=== PATIENT | male | born 1965 | race Caucasian/White ===

== ENCOUNTER 2018-06-24 19:22 | Emergency (ER) | payer MEDICARE, MEDICAID ==
[~2018-06-24] VITALS: Ht 175.3 cm; Wt 100.0 kg
[~2018-06-24 19:22] MED LIST: IBUP-1574 PO; NO HOME MEDS; ZOF4T PO
[2018-06-24] MEDS ORDERED: normal saline 1000ML IV soln IVB ONE (20:55)
--- NOTE | 2018-06-24 20:56 | NUR ---
FAMILY BROUGHT IN PT AFTER HE TOOK SOME UNKNOWN PILLS SEVERAL DAYS AGO. NOW ACTING "SPACEY", ATAXIC/WEAK WITH AMBULATION. FOLLOWS COMMAND, ORIENTED X 2, LAUGHING AND HAS DIFFICULTY STAYING ATTEMTIVE TO SITUATION.
[2018-06-24] MEDS ORDERED: LORazepam 2 mg/ml vial ONE (21:19)
[2018-06-24] MEDS ORDERED: LORazepam 2 mg/ml vial IV ONE ×3 (21:20→21:50)
--- NOTE | 2018-06-24 21:23 | NUR ---
PT MEDICATED WITH ATIVAN 1MG IV FOR AGGITATION.
[2018-06-24] MEDS ORDERED: diphenhydrAMINE 50 mg/ml inj ONE (21:29)
[2018-06-24] MEDS ORDERED: haloperidol lactate 5mg/ml inj IM ONE (21:30)
[2018-06-24] MEDS ORDERED: diphenhydrAMINE 50 mg/ml inj IV ONE (21:30)
[2018-06-24] MEDS ORDERED: haloperidol lactate 5mg/ml inj ONE (21:32)
[2018-06-24 21:34] LABS: BASOPHILS # (AUTO) 0.1 X10'3 (0-0.2); BASOPHILS % (AUTO) 0.9 % (0-1); EOSINOPHILS # (AUTO) 0.2 X10'3 (0-0.9); EOSINOPHILS % (AUTO) 2.6 % (0-6); HEMATOCRIT 44.2 % (42.0-52.0); LYMPHOCYTES % (AUTO) 26.7 % (21-51); MEAN CORPUSCULAR HEMOGLOBIN 30.7 PG (27.0-31.0); MEAN CORPUSCULAR VOLUME 90.3 FL (78-98); MEAN PLATELET VOLUME 9.1 FL (7.4-10.4); MONOCYTES # (AUTO) 0.7 X10'3 (0-0.9); MONOCYTES % (AUTO) 8.9 % (2-12); NEUTROPHILS # (AUTO) 4.5 X10'3 (1.8-7.7); NEUTROPHILS % (AUTO) 60.9 % (42-75); PLATELET COUNT 213 X10'3 (140-440); WHITE BLOOD COUNT 7.4 X10'3 (4.5-11.0)
[2018-06-24 21:37] LABS: ALANINE AMINOTRANSFERASE 30 U/L (12-78); ALBUMIN 3.9 G/DL (3.4-5.0); ALBUMIN/GLOBULIN RATIO 1.2 (1.1-1.5); ALKALINE PHOSPHATASE 65 IU/L (46-116); ANION GAP 10 (8-16); ASPARTATE AMINO TRANSFERASE 28 U/L (10-37); BILIRUBIN,TOTAL 0.5 MG/DL (0.1-1.0); BLOOD UREA NITROGEN 11 MG/DL (7-18); BUN/CREATININE RATIO 12.5 (5.4-32.0); CALCIUM 9.4 MG/DL (8.5-10.1); CHLORIDE 103 MMOL/L (99-107); CREATININE 0.88 MG/DL (0.60-1.10); ETHANOL < 0.010 GM/DL (0.0-0.010); GLUCOSE 121 MG/DL (70-104); POTASSIUM 4.1 MMOL/L (3.5-5.1); SODIUM 139 MMOL/L (135-145); TOTAL PROTEIN 7.2 G/DL (6.4-8.2); URINE AMPHETAMINE SCREEN POSITIVE (Neg); URINE BARBITUATE SCREEN NEGATIVE (Neg); URINE BENZODIAZEPINES SCREEN NEGATIVE (Neg); URINE CANNABINOID SCREEN NEGATIVE (Neg); URINE COCAINE SCREEN NEGATIVE (Neg); URINE METHADONE SCREEN NEGATIVE (Neg); URINE OPIATE SCREEN NEGATIVE (Neg); URINE PHENCYCLIDINE SCREEN NEGATIVE (Neg); eGFR 90 ML/MIN
--- NOTE | 2018-06-24 21:37 | NUR ---
PT'S AGGITATION WORSE, AT BEDSIDE, BENADRYL IV AND HALDOL IM GIVEN PER VERBAL ORDERS FROM DR GUZMAN.
[2018-06-24 21:39] LABS: INR 1.1 INR; PARTIAL THROMBOPLASTIN TIME 32 SECONDS (22-32); PROTHROMBIN TIME 10.8 SECONDS (9.0-12.0)
[2018-06-24 21:50] LABS: CLARITY,URINE CLEAR (Clear); COLOR,URINE YELLOW (Yellow); GLUCOSE, URINE NEGATIVE (Neg); KETONES,URINE 15 mg/dl (Neg); LEUKOCYTE ESTERASE ,URINE NEGATIVE (Neg); NITRITES, URINE NEGATIVE (Neg); OCCULT BLOOD,URINE NEGATIVE (Neg); PH,URINE 5.5 (4.8-8.0); PROTEIN,URINE NEGATIVE (Neg); UROBILINOGEN,URINE 0.2 E.U/dL (0.2-1.0)
--- NOTE | 2018-06-24 21:50 | NUR ---
PT HALLUCINATING, STILL VERY AGGITATED, ADDITIONAL ATIVAN ORDERED AND GIVEN.
[2018-06-24 21:52] LABS: UA COLLECTION TYPE CLN CATCH MIDSTREAM
--- NOTE | 2018-06-24 21:55 | NUR ---
PT HALLUCINATING, SPEAKING TO PEOPLE NOT THERE, YELLING "I DONT WANT TO ". STAFF AT BEDSIDE TRYING TO RE DIRECT PT WHILE MEDS TAKE AFFECT.
--- NOTE | 2018-06-24 23:16 | NUR ---
TELE PSYCH CONSULT NOT SET UP SINCE PT WAS MEDICATED FOR AGGITATION. WILL BEGIN CONSULT WHEN APPROPRIATE.
--- NOTE | 2018-06-25 02:27 | NUR ---
PT SLEEPING, VSS
--- NOTE | 2018-06-25 09:25 | NUR ---
report to david Holland on er overflow.
--- NOTE | 2018-06-25 09:45 | NUR ---
Patient escorted to Bed 23 by Lucy Suazo. Made comfortable in bed. Fell asleep immediately after laying down in bed.
--- NOTE | 2018-06-25 11:45 | NUR ---
Remains asleep. Breathing even and unlabored.
--- NOTE | 2018-06-25 13:05 | NUR ---
Awakened for lunch. Ate 100% of his meal. Returned to sleep.
--- NOTE | 2018-06-25 17:25 | NUR ---
Slept for remainder of the afternoon. Color pink. Breathing WNL. Saline lock removed from patient's right forearm without patient awakening.
--- NOTE | 2018-06-25 19:06 | NUR ---
Pt transfered to ER14.
--- NOTE | 2018-06-26 06:30 | NUR ---
Pt transfered to room 21.
--- NOTE | 2018-06-26 08:49 | NUR ---
Denies SI or HI. States can come and pick him up. Dr White aware.
[2018-06-26 09:47] VITALS: BP 128/77
== END 2018-06-26 09:49 | disposition home or self-care (01) ==
LOC: ER 19:23
DX: F15.10 Other stimulant abuse, uncomplicated (principal); R45.851 Suicidal ideations; R11.10 Vomiting, unspecified; Z79.899 Other long term (current) drug therapy; Z56.0 Unemployment, unspecified
CPT/HCPCS: 36415; 70450; 71045; 80053; 80305; 80320; 81003; 82140; 82948; 85025; 85610; 85730; 93005; 96372; 96374; 96375; 96376; 99284; J1200; J1630; J2060; J7030

== ENCOUNTER 2018-10-04 13:03 | Emergency (ER) | payer MEDICARE, MEDICAID ==
[~2018-10-04] VITALS: Ht 175.3 cm; Wt 79.0 kg
[2018-10-04 13:50] LABS: BASOPHILS # (AUTO) 0.1 X10'3 (0-0.2); EOSINOPHILS # (AUTO) 0.2 X10'3 (0-0.9); EOSINOPHILS % (AUTO) 2.4 % (0-6); HEMATOCRIT 44.1 % (42.0-52.0); HEMOGLOBIN 15.3 g/dl (14.0-17.9); LYMPHOCYTES # (AUTO) 1.5 X10'3 (1.1-4.8); MEAN CORPUSCULAR HEMOGLOBIN 31.6 PG (27.0-31.0); MEAN CORPUSCULAR HGB CONC 34.7 g/dL (33.0-36.5); MEAN CORPUSCULAR VOLUME 91.1 FL (78-98); MONOCYTES # (AUTO) 0.4 X10'3 (0-0.9); MONOCYTES % (AUTO) 5.5 % (2-12); NEUTROPHILS # (AUTO) 5.5 X10'3 (1.8-7.7); NEUTROPHILS % (AUTO) 72.1 % (42-75); PLATELET COUNT 183 X10'3 (140-440); RED BLOOD COUNT 4.84 X10'6 (4.70-6.10); RED CELL DISTRIBUTION WIDTH 12.9 % (11.5-14.5); WHITE BLOOD COUNT 7.6 X10'3 (4.5-11.0)
[2018-10-04 13:57] LABS: CLARITY,URINE SLIGHTLY CLOUDY (Clear); COLOR,URINE YELLOW (Yellow); GLUCOSE, URINE >=1000 mg/dl (Neg); KETONES,URINE 40 mg/dl (Neg); LEUKOCYTE ESTERASE ,URINE NEGATIVE (Neg); NITRITES, URINE NEGATIVE (Neg); OCCULT BLOOD,URINE NEGATIVE (Neg); PH,URINE 5.5 (4.8-8.0); PROTEIN,URINE NEGATIVE (Neg); UROBILINOGEN,URINE 0.2 E.U/dL (0.2-1.0)
[2018-10-04 14:06] LABS: ALBUMIN 3.3 G/DL (3.4-5.0); ALBUMIN/GLOBULIN RATIO 0.9 (1.1-1.5); ALKALINE PHOSPHATASE 87 IU/L (46-116); BILIRUBIN,TOTAL 0.6 MG/DL (0.1-1.0); BLOOD UREA NITROGEN 20 MG/DL (7-18); BUN/CREATININE RATIO 19.6 (5.4-32.0); CALCIUM 8.3 MG/DL (8.5-10.1); CHLORIDE 90 MMOL/L (99-107); CREATININE 1.02 MG/DL (0.60-1.10); LIPASE 362 U/L (73-393); TOTAL CARBON DIOXIDE 25.4 MMOL/L (24-32); TOTAL PROTEIN 6.9 G/DL (6.4-8.2); eGFR 76 ML/MIN
[2018-10-04 14:08] LABS: UA COLLECTION TYPE CLN CATCH MIDSTREAM
[2018-10-04 14:11] LABS: ALANINE AMINOTRANSFERASE 31 U/L (12-78); ASPARTATE AMINO TRANSFERASE 13 U/L (10-37); POTASSIUM 4.7 MMOL/L (3.5-5.1)
[2018-10-04 14:19] LABS: BACTERIA,URINE FEW /HPF (Neg); RBC,URINE 0-2 /HPF (0-2); SQUAMOUS EPITHELIAL CELL,UR FEW /LPF (FEW); WBC,URINE 0-4 /HPF (0-4)
--- NOTE | 2018-10-04 14:22 | NUR ---
P ASSESSED AT BEDSIDE.CO APIGASTRIC PAIN X2 WEEK.GET WORSE WITH EATING MEALS.
[2018-10-04 14:23] LABS: ANION GAP 8 (8-16); SODIUM 123 MMOL/L (135-145)
[2018-10-04 14:28] LABS: GLUCOSE 672 MG/DL (70-104)
--- NOTE | 2018-10-04 14:35 | NUR ---
NO NEW ORDERES FROM DR STEINER OR RAYA AT THIS TIME , IS AWARE.
[2018-10-04] MEDS ORDERED: normal saline 1000ML IV soln IVB ONE ×2 (14:45→17:20)
[2018-10-04 15:00] LABS: HEMOGLOBIN A1C 11.8 % (4.5-6.2)
[2018-10-04] MEDS ORDERED: insulin regular, human 10 units/0.1 ml syringe SQ ONE ×2 (15:05→17:20)
--- NOTE | 2018-10-04 15:15 | NUR ---
ADMINSTERED INSULIN TO PT IV FLUID INFUSING PER MD ORDERS,PT DENIES ANY CONCERN, AT BEDSIDE.
--- NOTE | 2018-10-04 16:06 | NUR ---
CASE MANAGEMENT CALLED REGARDING INFORMATION FOR DIABETIC EDUCATION. WAS GIVEN THE PHONE NUMBER FOR THE DIABETIC CENTER AND FAXED THE PT'S FACE SHEET TO THEM ALONG WITH A FOLLOW-UP PHONE CALL, MESSAGE WAS LEFT. PT WAS INFORMED TO CALL [facility] AND MAKE AN APPT TO ESTABLISH WITH A PMD THERE AND THAT THE DIABETIC CLINIC WILL BE CALLING HIM TO MAKE AN APPT FOR F/U EDUCATION. PT GIVEN PHONE NUMBERS FOR THE DIABETIC CLINIC AND [facility]
[2018-10-04] MEDS ORDERED: INSU100I31 SQ (16:24)
--- NOTE | 2018-10-04 17:00 | NUR ---
as per pt jabari colorado said that he is going back home,wll cont to monitor.
--- NOTE | 2018-10-04 17:39 | NUR ---
RELIEVING RN FOR BREAK, PT IS RESTING QUIETLY, MEDICATED PER MD ORDER, 1 LITER NS INFUSING W/O
[2018-10-04 18:17] VITALS: BP 124/66
--- NOTE | 2018-10-04 18:50 | NUR ---
informed pa miroslava stallworth pt bld [address].as per pa pt might go home ,he is going to print discharge paperwork .
== END 2018-10-04 19:18 | disposition home or self-care (01) ==
LOC: ER 13:03
DX: E11.65 Type 2 diabetes mellitus with hyperglycemia (principal); R11.2 Nausea with vomiting, unspecified; R10.13 Epigastric pain; K59.00 Constipation, unspecified; F17.200 Nicotine dependence, unspecified, uncomplicated; F15.90 Other stimulant use, unspecified, uncomplicated; F10.99 Alcohol use, unspecified with unspecified alcohol-induced disorder; Z56.0 Unemployment, unspecified; Z79.4 Long term (current) use of insulin; Y90.9 Presence of alcohol in blood, level not specified
CPT/HCPCS: 36415; 80053; 81001; 82948; 83036; 83690; 85025; 96360; 96361; 96372; 99283; J1815; J7030

== ENCOUNTER 2019-01-24 17:23 | Emergency (ER) | payer MEDICARE, MEDICAID ==
[~2019-01-24] VITALS: Ht 175.3 cm; Wt 84.0 kg
[~2019-01-24 17:23] MED LIST changes: -IBUP-1574 PO; +INSU100I31 SQ; -ZOF4T PO
[2019-01-24 18:22] LABS: BASOPHILS # (AUTO) 0.1 X10'3 (0-0.2); BASOPHILS % (AUTO) 0.8 % (0-1); EOSINOPHILS # (AUTO) 0.2 X10'3 (0-0.9); EOSINOPHILS % (AUTO) 2.3 % (0-6); LYMPHOCYTES # (AUTO) 1.4 X10'3 (1.1-4.8); LYMPHOCYTES % (AUTO) 21.3 % (21-51); MEAN CORPUSCULAR HEMOGLOBIN 30.6 PG (27.0-31.0); MEAN CORPUSCULAR HGB CONC 34.1 g/dL (33.0-36.5); MEAN CORPUSCULAR VOLUME 89.7 FL (78-98); MEAN PLATELET VOLUME 9.5 FL (7.4-10.4); MONOCYTES # (AUTO) 0.5 X10'3 (0-0.9); MONOCYTES % (AUTO) 7.3 % (2-12); NEUTROPHILS # (AUTO) 4.6 X10'3 (1.8-7.7); NEUTROPHILS % (AUTO) 68.3 % (42-75); PLATELET COUNT 227 X10'3 (140-440); RED CELL DISTRIBUTION WIDTH 13.2 % (11.5-14.5); WHITE BLOOD COUNT 6.8 X10'3 (4.5-11.0)
[2019-01-24 18:24] LABS: CLARITY,URINE CLEAR (Clear); GLUCOSE, URINE NEGATIVE (Neg); KETONES,URINE NEGATIVE (Neg); LEUKOCYTE ESTERASE ,URINE NEGATIVE (Neg); NITRITES, URINE NEGATIVE (Neg); OCCULT BLOOD,URINE NEGATIVE (Neg); PH,URINE 6.5 (4.8-8.0); PROTEIN,URINE NEGATIVE (Neg)
[2019-01-24 18:25] LABS: COLOR,URINE DARK YELLOW (Yellow); UA COLLECTION TYPE VOIDED; URINE AMPHETAMINE SCREEN POSITIVE (Neg); URINE BARBITUATE SCREEN NEGATIVE (Neg); URINE BENZODIAZEPINES SCREEN NEGATIVE (Neg); URINE CANNABINOID SCREEN POSITIVE (Neg); URINE COCAINE SCREEN NEGATIVE (Neg); URINE METHADONE SCREEN NEGATIVE (Neg); URINE OPIATE SCREEN NEGATIVE (Neg); URINE PHENCYCLIDINE SCREEN NEGATIVE (Neg)
[2019-01-24 18:33] LABS: ALANINE AMINOTRANSFERASE 19 U/L (12-78); ALBUMIN 3.9 G/DL (3.4-5.0); ALKALINE PHOSPHATASE 64 IU/L (46-116); ANION GAP 8 (8-16); ASPARTATE AMINO TRANSFERASE 20 U/L (10-37); BILIRUBIN,TOTAL 0.5 MG/DL (0.1-1.0); BLOOD UREA NITROGEN 10 MG/DL (7-18); BUN/CREATININE RATIO 10.3 (5.4-32.0); CALCIUM 9.5 MG/DL (8.5-10.1); CHLORIDE 103 MMOL/L (99-107); CREATININE 0.97 MG/DL (0.60-1.10); GLUCOSE 142 MG/DL (70-104); POTASSIUM 3.7 MMOL/L (3.5-5.1); SODIUM 138 MMOL/L (135-145); TOTAL CARBON DIOXIDE 27.5 MMOL/L (24-32); TOTAL PROTEIN 7.7 G/DL (6.4-8.2); eGFR 80 ML/MIN
[2019-01-24 18:41] LABS: ETHANOL < 0.010 GM/DL (0.0-0.010)
[2019-01-24] MEDS ORDERED: normal saline 1000ML IV soln IVB ONE (18:55)
[2019-01-24] MEDS ORDERED: quetiapine 100mg tablet PO STA (19:23)
[2019-01-24] MEDS ORDERED: OLANZapine 2.5MG tablet PO STA (19:23)
[2019-01-24] MEDS ORDERED: diphenhydrAMINE 50 mg/ml inj IV ONE (19:25)
[2019-01-24] MEDS ORDERED: LORazepam 2 mg/ml vial IV ONE (20:35)
--- NOTE | 2019-01-24 21:36 | NUR ---
Assumed care from Conchita MENDIOLA, patient sleeping at this time.
--- NOTE | 2019-01-25 | NUR ---
WALKED BY ROOM AND OBSERVED PT OUT OF BED URINATING INTO SINK. PT HAD ALSO URINATED ALL OVER THE FLOOR. PT HAD A URINAL AT BEDSIDE. HE WAS PLACED BACK INTO BED AND EVS WAS NOTIFIED TO CLEAN THE FLOOR.
--- NOTE | 2019-01-25 05:10 | NUR ---
Patient ambulated 200ft with stand by assist. Used urinal appropriately, and answered all questions appropriately. MD avalos
[2019-01-25 05:34] VITALS: BP 115/62
== END 2019-01-25 05:37 | disposition home or self-care (01) ==
LOC: ER 17:24
DX: G92 Toxic encephalopathy (principal); F15.10 Other stimulant abuse, uncomplicated; R41.0 Disorientation, unspecified; Z56.0 Unemployment, unspecified; Z79.4 Long term (current) use of insulin
CPT/HCPCS: 36415; 71045; 80053; 80305; 80320; 81003; 82140; 82948; 84443; 85025; 93005; 96361; 96374; 96375; 99284; J1200; J2060; J7030

== ENCOUNTER 2019-02-26 10:26 | Emergency (ER) | payer MEDICARE, MEDICAID ==
[~2019-02-26] VITALS: Ht 175.3 cm; Wt 83.9 kg
[2019-02-26 11:06] LABS: BASOPHILS # (AUTO) 0.1 X10'3 (0-0.2); EOSINOPHILS # (AUTO) 0.2 X10'3 (0-0.9); EOSINOPHILS % (AUTO) 2.4 % (0-6); HEMATOCRIT 45.4 % (42.0-52.0); HEMOGLOBIN 15.4 g/dl (14.0-17.9); LYMPHOCYTES # (AUTO) 1.2 X10'3 (1.1-4.8); MEAN CORPUSCULAR HEMOGLOBIN 31.1 PG (27.0-31.0); MEAN CORPUSCULAR VOLUME 91.7 FL (78-98); MEAN PLATELET VOLUME 8.7 FL (7.4-10.4); MONOCYTES # (AUTO) 0.5 X10'3 (0-0.9); MONOCYTES % (AUTO) 7.5 % (2-12); NEUTROPHILS # (AUTO) 4.9 X10'3 (1.8-7.7); NEUTROPHILS % (AUTO) 71.1 % (42-75); PLATELET COUNT 251 X10'3 (140-440); RED BLOOD COUNT 4.95 X10'6 (4.70-6.10); RED CELL DISTRIBUTION WIDTH 13.2 % (11.5-14.5); WHITE BLOOD COUNT 6.8 X10'3 (4.5-11.0)
[2019-02-26 11:21] LABS: ALANINE AMINOTRANSFERASE 26 U/L (12-78); ALBUMIN 3.9 G/DL (3.4-5.0); ALBUMIN/GLOBULIN RATIO 1.1 (1.1-1.5); ALKALINE PHOSPHATASE 67 IU/L (46-116); ANION GAP 5 (8-16); ASPARTATE AMINO TRANSFERASE 17 U/L (10-37); BILIRUBIN,TOTAL 0.5 MG/DL (0.1-1.0); BLOOD UREA NITROGEN 12 MG/DL (7-18); BUN/CREATININE RATIO 13.2 (5.4-32.0); CALCIUM 8.7 MG/DL (8.5-10.1); CHLORIDE 105 MMOL/L (99-107); CREATININE 0.91 MG/DL (0.60-1.10); GLUCOSE 97 MG/DL (70-104); POTASSIUM 4.3 MMOL/L (3.5-5.1); SODIUM 140 MMOL/L (135-145); TOTAL CARBON DIOXIDE 29.6 MMOL/L (24-32); TOTAL PROTEIN 7.4 G/DL (6.4-8.2); eGFR 86 ML/MIN
[2019-02-26 12:42] VITALS: BP 112/63
== END 2019-02-26 12:44 | disposition home or self-care (01) ==
LOC: ER 10:29
DX: R53.1 Weakness (principal); R06.02 Shortness of breath; R07.9 Chest pain, unspecified; F15.90 Other stimulant use, unspecified, uncomplicated; E11.9 Type 2 diabetes mellitus without complications; F17.200 Nicotine dependence, unspecified, uncomplicated; Z79.4 Long term (current) use of insulin; Z79.899 Other long term (current) drug therapy; Z56.0 Unemployment, unspecified; Z13.89 Encounter for screening for other disorder
CPT/HCPCS: 36415; 71045; 80053; 82948; 84484; 85025; 93005; 99284

== ENCOUNTER 2020-03-26 09:40 | Emergency (ER) | payer MEDICARE, MEDICAID ==
[~2020-03-26] VITALS: Ht 175.3 cm; Wt 87.0 kg
[2020-03-26 09:44] VITALS: BP 113/77
[2020-03-26] MEDS ORDERED: NAPR-56 PO (10:05)
[2020-03-26] MEDS ORDERED: PENI250T2 PO (10:05)
== END 2020-03-26 10:36 | disposition home or self-care (01) ==
LOC: ER 09:41
DX: K02.9 Dental caries, unspecified (principal); E11.9 Type 2 diabetes mellitus without complications; F15.90 Other stimulant use, unspecified, uncomplicated; Z72.89 Other problems related to lifestyle; Z56.0 Unemployment, unspecified; Z79.899 Other long term (current) drug therapy; Z79.4 Long term (current) use of insulin
CPT/HCPCS: 99283

== ENCOUNTER 2021-05-28 21:01 | Emergency (ER) | payer MEDICARE, MEDICAID ==
[~2021-05-28] VITALS: Ht 175.3 cm; Wt 77.3 kg
[2021-05-28 21:53] LABS: BASOPHILS # (AUTO) 0.1 X10'3 (0-0.2); BASOPHILS % (AUTO) 0.8 % (0-1); EOSINOPHILS # (AUTO) 0.1 X10'3 (0-0.9); EOSINOPHILS % (AUTO) 1.8 % (0-6); HEMATOCRIT 44.6 % (42.0-52.0); HEMOGLOBIN 15.1 g/dl (14.0-17.9); LYMPHOCYTES # (AUTO) 1.9 X10'3 (1.1-4.8); LYMPHOCYTES % (AUTO) 24.4 % (21-51); MEAN CORPUSCULAR HEMOGLOBIN 30.5 PG (27.0-31.0); MEAN CORPUSCULAR HGB CONC 33.9 g/dL (33.0-36.5); MEAN PLATELET VOLUME 9.9 FL (7.4-10.4); MONOCYTES # (AUTO) 0.6 X10'3 (0-0.9); MONOCYTES % (AUTO) 7.5 % (2-12); NEUTROPHILS % (AUTO) 65.5 % (42-75); PLATELET COUNT 208 X10'3 (140-440); RED BLOOD COUNT 4.95 X10'6 (4.70-6.10); RED CELL DISTRIBUTION WIDTH 12.4 % (11.5-14.5); WHITE BLOOD COUNT 7.6 X10'3 (4.5-11.0)
[2021-05-28 22:07] LABS: ALANINE AMINOTRANSFERASE 44 U/L (12-78); ALBUMIN 3.7 G/DL (3.4-5.0); ALKALINE PHOSPHATASE 86 IU/L (46-116); ANION GAP 11 (8-16); ASPARTATE AMINO TRANSFERASE 18 U/L (10-37); BILIRUBIN,TOTAL 0.4 MG/DL (0.1-1.0); BLOOD UREA NITROGEN 25 MG/DL (7-18); BUN/CREATININE RATIO 21.2 (5.4-32.0); CALCIUM 8.8 MG/DL (8.5-10.1); CHLORIDE 88 MMOL/L (99-107); CREATININE 1.18 MG/DL (0.60-1.10); LIPASE 141 U/L (73-393); POTASSIUM 4.1 MMOL/L (3.5-5.1); SODIUM 126 MMOL/L (135-145); TOTAL CARBON DIOXIDE 27.5 MMOL/L (24-32); TOTAL PROTEIN 7.5 G/DL (6.4-8.2); eGFR 64 ML/MIN
[2021-05-28 22:12] LABS: GLUCOSE 730 MG/DL (70-104)
[2021-05-28] MEDS ORDERED: normal saline 1000ML IV soln IVB ONE ×2 (22:45→22:50)
[2021-05-28] MEDS ORDERED: normal saline 1000ml 1,000 ML IV ONE (22:45)
[2021-05-28] MEDS ORDERED: insulin regular, human 10 units/0.1 ml syringe IV ONE (22:45)
[2021-05-28 23:04] LABS: ETHANOL < 0.010 GM/DL (0.0-0.010); MAGNESIUM 2.2 MG/DL (1.5-2.4)
[2021-05-28 23:15] LABS: OSMOLALITY 315 MOSM/K (280-300)
--- NOTE | 2021-05-29 00:16 | NUR ---
Pt presents to the ed tx area for right inguinal hernia evaluation; the pt states he has pain in the groin which radiates to his right side and back. He rates his pain intensity at 8/10. The pt denies fever/chills, h/a, n/v/d, gu, or symptoms. The pt is a/o, nad, skin w/d.
[2021-05-29 00:50] LABS: URINE AMPHETAMINE SCREEN POSITIVE (Neg); URINE BARBITUATE SCREEN NEGATIVE (Neg); URINE BENZODIAZEPINES SCREEN NEGATIVE (Neg); URINE CANNABINOID SCREEN NEGATIVE (Neg); URINE COCAINE SCREEN NEGATIVE (Neg); URINE METHADONE SCREEN NEGATIVE (Neg); URINE OPIATE SCREEN NEGATIVE (Neg); URINE PHENCYCLIDINE SCREEN NEGATIVE (Neg)
[2021-05-29 00:57] LABS: CLARITY,URINE CLEAR (Clear); COLOR,URINE YELLOW (Yellow); GLUCOSE, URINE >=1000 mg/dl (Neg); KETONES,URINE TRACE mg/dl (Neg); LEUKOCYTE ESTERASE ,URINE NEGATIVE (Neg); NITRITES, URINE NEGATIVE (Neg); OCCULT BLOOD,URINE NEGATIVE (Neg); PROTEIN,URINE NEGATIVE (Neg); UROBILINOGEN,URINE 0.2 E.U/dL (0.2-1.0)
[2021-05-29 01:00] LABS: UA COLLECTION TYPE NON-SPECIFIED
[2021-05-29 01:15] LABS: BACTERIA,URINE NONE SEEN /HPF (Neg); MUCUS STRANDS NONE SEEN /LPF (Neg); RBC,URINE 0-2 /HPF (0-2); SQUAMOUS EPITHELIAL CELL,UR FEW /LPF (FEW); WBC,URINE 0-4 /HPF (0-4)
[2021-05-29] MEDS ORDERED: normal saline 1000ML IV soln IVB ONE (02:00)
[2021-05-29] MEDS ORDERED: PYRIDOSTIGMINE 5 MG/ML IM ONE (02:00)
[2021-05-29] MEDS ORDERED: METF-900 PO (02:00)
[2021-05-29] MEDS ORDERED: insulin glargine (Lantus) pen - multi-dose SQ ONE (02:00)
[2021-05-29 02:39] VITALS: BP 120/68
[2021-05-29] MEDS ORDERED: insulin regular, human 10 units/0.1 ml syringe SQ ONE (03:20)
== END 2021-05-29 03:43 | disposition home or self-care (01) ==
LOC: ER 21:02
DX: K43.9 Ventral hernia without obstruction or gangrene (principal); E13.9 Other specified diabetes mellitus without complications; F15.10 Other stimulant abuse, uncomplicated; Z72.89 Other problems related to lifestyle; Z56.0 Unemployment, unspecified; Z79.4 Long term (current) use of insulin; Z79.899 Other long term (current) drug therapy
CPT/HCPCS: 36415; 80053; 80305; 80320; 81001; 82948; 83690; 83735; 83930; 85025; 96361; 96374; 99284; J1815; J7030; 96372

== ENCOUNTER 2022-03-16 21:32 | Emergency (ER) | payer MEDICARE, MEDICAID ==
[~2022-03-16] VITALS: Ht 175.3 cm; Wt 70.0 kg
[2022-03-16 21:47] VITALS: BP 101/77
== END 2022-03-16 23:43 | disposition left against medical advice (07) ==
LOC: ER 21:33
DX: M54.59 Other low back pain (principal); Z53.21 Procedure and treatment not carried out due to patient leaving prior to being seen by health care provider

== ENCOUNTER 2022-03-17 01:41 | Emergency (ER) | payer MEDICARE, MEDICAID ==
[~2022-03-17] VITALS: Ht 172.7 cm; Wt 66.5 kg
[2022-03-17 01:50] VITALS: BP 158/94
--- NOTE | 2022-03-17 08:13 | NUR ---
PT WAS SEEN BY PROVIDER AND UP FOR D\C PRIOR TO BEING ASSIGNED AN RN
== END 2022-03-17 08:13 | disposition home or self-care (01) ==
LOC: ER 01:41
DX: K40.90 Unilateral inguinal hernia, without obstruction or gangrene, not specified as recurrent (principal); E11.9 Type 2 diabetes mellitus without complications; F15.20 Other stimulant dependence, uncomplicated; Z56.0 Unemployment, unspecified
CPT/HCPCS: 99281